=== PATIENT | male | born 1975 | race Caucasian/White ===

== ENCOUNTER 2022-01-26 17:38 | Emergency (ER) | payer MEDICARE ==
[2022-01-27 00:43] LABS: HEMOGLOBIN 14.9 gm/dl (14.0-17.5); RED BLOOD COUNT 4.54 M/UL (4.20-5.50); WHITE BLOOD COUNT 16.6 K/UL (4.5-11.0)
[2022-01-27 01:02] LABS: BUN/CREATININE RATIO 13 (0-10)
[2022-01-27] MEDS ORDERED: HYDROCODON-ACE1 EAC4 PO (02:42)
[2022-01-27] MEDS ORDERED: ZOFRAN ODT 4 MG4 MG SL (02:42)
[2022-01-27] MEDS ORDERED: FLOMAX 0.4 MG0.4 MG PO (02:42)
== END 2022-01-27 02:54 | disposition home or self-care (01) ==
LOC: ER1 17:38
PROVIDERS: Student in an Organized Health Care Education/Training Program
DX: N13.2 Hydronephrosis with renal and ureteral calculous obstruction (principal); I10 Essential (primary) hypertension; F17.210 Nicotine dependence, cigarettes, uncomplicated
CPT/HCPCS: 80053; 81001; 83690; 85025; 96374; 96375; 99284; J1885; J2270; Q9967